=== PATIENT | male | born 1940 | race Caucasian/White ===

== ENCOUNTER → 2017-12-24 | Outpatient (CLI) | payer OTHER | LOC: FIMAGING 10:46 | DX: Z12.9 Encounter for screening for malignant neoplasm, site unspecified (principal); Z85.46 Personal history of malignant neoplasm of prostate; E83.52 Hypercalcemia | CPT/HCPCS: 78306; A9503 ==

== ENCOUNTER → 2018-03-12 | Outpatient (CLI) | payer OTHER ==
[~2018-03-12] MED LIST: IOPAMIDOL (ISOVUE-300) 100 ML BTL ONE
== END ==
LOC: FIMAGING 11:36
PROVIDERS: ATTEND Internal Medicine
DX: K59.00 Constipation, unspecified (principal); N40.0 Benign prostatic hyperplasia without lower urinary tract symptoms; K76.89 Other specified diseases of liver; C79.9 Secondary malignant neoplasm of unspecified site; E83.52 Hypercalcemia
CPT/HCPCS: 74177; Q9967; 82565-PO